=== PATIENT | female | born 1960 | race Caucasian/White ===

== ENCOUNTER 2016-03-31 12:14 | Day surgery (SDC) | payer OTHER ==
[~2016-03-31] VITALS: Ht 160 cm; Wt 78.0 kg
[~2016-03-31 12:14] MED LIST: ESOM40CA41 PO; Lactated Ringer's 1,000 ML IV ONE; OMEP20TA24 PO; OXYC10TA69 PO; QUE9 PO; RANI75TA21 PO; SERT100T PO
[2016-03-31] MEDS ORDERED: Propofol 10,000 mCg/mL 20 mL Inj ONE (12:15)
[2016-03-31 12:40] VITALS: BP 140/65; PULSE 63; RESP 12; O2SAT 100
[2016-03-31] MEDS ORDERED: BIMA2.5D5 OD (12:40)
[2016-03-31] MEDS ORDERED: GABA-502 PO (12:40)
[2016-03-31] MEDS ORDERED: Lactated Ringer's 1,000 ML IV SCH (13:39)
--- NOTE | 2016-03-31 13:39 | PCM.HPANE ---
Patient Data Surgeon Admitting Provider: Attending Provider:Eduar Menjivar MD Primary Care Physician:Christine Canales PA-C Other Provider:Dillon Gilliland Anesthesia Reason for Visit Diarrhea, Epigastic Pain Ht/WT & BMI Height (Feet): 5 Height (Inches): 3 Weight (Kilograms): 78 Body Mass Index 30.00 Allergies Coded Allergies: Sulfa (Sulfonamide Antibiotics) (Verified Allergy, Unknown, 03/31/16) Past Anesthesia History Anesthesia History: Denies:: Abnormal Airway, Anesthesia Reactions, Difficult Intubation, Fam Anesthesia Reaction, Fam Malignant Hypertherm, Malignant Hyperthermia Diabetes History Hx Diabetes?: No MRSA MRSA: No Medications Home Meds Incl Beta [place]: No Reported Medications Bimatoprost (Lumigan)45 Drop/2.5 Ml Wzfdsif62 Drop OD HS #1 BOTTLE 03/31/16 Gabapentin 300 Mg Cdlkejj203 Mg PO TID Ref 0 03/31/16 Sertraline HCl (Zoloft)100 Mg Glusez976 Mg PO DAILY 30 Days Ref 0 03/29/16 Ranitidine (Zantac OTC)75 Mg Cjhltx99 Mg PO DAILY #1 PKG Ref 0 03/29/16 Omeprazole Magnesium (Prilosec Otc)20 Mg Tablet.dr20 Mg PO DAILY #1 PKG Ref 0 03/29/16 Oxycodone ER (Oxycontin)10 Mg Tab.er.12h10 Mg PO BID 03/29/16 Cholestyramine (Cholestyramine Packet)4 Gm Packet4 Gm PO DAILY Ref 0 03/29/16 Discontinued Reported Medications Esomeprazole Magnesium (Nexium)40 Mg Capsule.dr40 Mg PO BID Ref 0 03/29/16 History HEENT History: Positive for:: Dysphagia Hearing Problem (SPOSED TO WEAR HEARING AID BUT DOESN'T) Denies:: Abnormal Airway Difficult Intubation Teeth Condition: Missing Teeth Hx of Heart Problems?: Yes Cardiovascular History: Positive for:: Hypertension Denies:: AICD Chest Pain Pacemaker Valvular Heart Disease Other Cardiac History: SAYS "HEART SKIPS A BEAT" HASN'T BEEN DIAGNOSED. Hx of Respiratory Problem?: No Neurological History: Positive for:: CVA (X3) Hx of GI Problems?: Yes Gastrointestinal History: Positive for:: Gall Bladder Disease ([place] 2002) Gastroesphageal Reflux Hiatal Hernia Denies:: Cirrhosis Diverticulitis Liver Disease Rectal Bleeding Female Hx: Denies:: Currently Musculoskeletal History: Denies:: Fibromyalgia Joint Replacement Psycho Social History: Positive for:: Anxiety Hx Depression Hx Surgeries?: Yes ([place], BACK SURG, KNEE SURG, C SECTION, HYSTERECTOMY, THROAT (SCAR TISSUE)) Hx Any Other Health Problems?: Yes Hx Diabetes: No Hx Alcohol Use: Yes (OCCASIONAL) Stop/Bang Treated for Sleep Apnea?: Yes Do You Have a CPAP Machine?: Yes (DOESN'T USE IT) S-Snoring: Do You Snore Loudly: Yes T-Tired: feel tired, fatigued: Yes O-Obsered: Observed not breath: Yes P-Blood Pressure: treated: Yes B- Body Mass Index > 35 kg/m2: Yes A- Age over 50: Yes N- Neck Large Circumference: Yes G- Gender Male: No ELENI Total Score: 7 ELENI Risk Assessment: High Risk, =/>3 Yes Risk Assessment Category Category 1A: Patient has history of documented sleep apnea, and HAS NOT received any narcotic, sedative or anesthesia administration during this stay. Category 1B: Patient has history of documented sleep apnea, and HAS received any narcotic , sedative or anesthesia administration during this stay Category 2: Patient has SUSPECTED Obstructive Sleep Apnea, and HAS received any narcotic , sedative or anesthesia administration during this stay. Category 3: Patient has SUSPECTED Obstructive Sleep Apnea and HAS NOT received narcotic, sedative or anesthesia administration during this stay. Category 4: Outpatient in Procedural Areas with known sleep apnea or who screen positive for High Risk via the STOP/BANG questionnaire. Exam Exam Vital Signs Vital Signs Date Time Temp Pulse Resp B/P Pulse Ox O2 Delivery O2 Flow Rate FiO2 03/31/16 12:40 36.8 63 12 140/65 100 Room Air General Appearance: Oriented X3 HEENT/AIRWAY: MP 2 Lungs: Normal Air Movement Heart: Regular Rate/Rhythm Plan Impression Patient chart reviewed, patient interviewed and anesthestic plan with risks, benefits, and alternatives discussed, and informed consent obtained. ASA Physical Status: ASA2 Mod Systemic Disease Anesthetic Plan: MAC Bene/Risks/Altern/Consents: Yes HP Complete Prior to Induction: Yes Grover Blas MD Mar 31, 2016 13:39
[2016-03-31] MEDS ORDERED: MetoCLOpramide 5 mg/mL 2 mL Inj IVPUSH PRN (13:40)
[2016-03-31] MEDS ORDERED: Ondansetron 2 mg/mL 2 mL Inj IVPUSH PRN (13:40)
[2016-03-31 14:12] VITALS: BP 123/69; PULSE 75; RESP 16; O2SAT 96
[2016-03-31 14:24] VITALS: BP 139/70; PULSE 65; RESP 16; O2SAT 100
[2016-03-31 14:26] VITALS: BP 134/66; PULSE 76; RESP 16; O2SAT 100
--- NOTE | 2016-03-31 14:28 | PCM.ANEP1 ---
Post Anesthesia Phase 1 PACU Phase 1 Assessment Vital Signs Vital Signs Date Time Temp Pulse Resp B/P Pulse Ox O2 Delivery O2 Flow Rate FiO2 03/31/16 14:26 76 16 134/66 100 Room Air 03/31/16 14:24 65 16 139/70 100 Room Air 03/31/16 14:12 75 16 123/69 96 Room Air 03/31/16 12:40 36.8 63 12 140/65 100 Room Air Anesthetic Administered: MAC Level of Alertness: Awake, talking Pain: No Nausea or Vomiting: No Oxygen Delivery: Room Air Lungs: Normal Air Movement Grover Blas MD Mar 31, 2016 14:28
--- NOTE | 2016-03-31 14:28 | PCM.ANEP2 ---
Post Anesthesia Evaluation ASA/CMS Post Anesthesia VS in Patient's Normal Range?: Yes Resp Stable; Airway Patent?: Yes CV Function & Hydration Stable: Yes Mental Status Recovered?: Yes Pain control Satisfactory?: Yes N/V Control Satisfactory?: Yes Grover Blas MD Mar 31, 2016 14:28
--- NOTE | 2016-03-31 15:03 | ENDO ---
[address] [address] ENDOSCOPY PROCEDURE PATIENT: PETRA ALSTON : 1960 MR#: [id number] ADMIT: 03/31/2016 JOB ID: [id number] TYPE OF OPERATION: Esophagogastroduodenoscopy with biopsy, colonoscopy with biopsy. PREOPERATIVE DIAGNOSIS(ES): Gastroesophageal reflux disease, abdominal pain, diarrhea. POSTOPERATIVE DIAGNOSIS(ES): 1. Mild nonerosive gastritis. biopsy. 2. Small internal hemorrhoids. ANESTHESIA: Monitored anesthesia care. COMPLICATIONS: None. BLOOD LOSS: Minimal DESCRIPTION OF PROCEDURE: After risks and benefits explained to the patient, informed consent was obtained. After anesthesia administered, upper endoscope was then inserted in the mouth, intubating the esophagus, stomach, second portion of duodenum. Mucosa carefully examined. After procedure was done, the scope withdrawn, procedure terminated. A colonoscope was the inserted from the rectum to the terminal ileum and mucosa carefully examined. Prep of the patient was fair. After procedure was done, the scope was withdrawn and procedure terminated. FINDINGS: Upon inspection of the esophagus, the esophagus was normal without masses, ulcers, or lesions. Z-line located at 35 cm from incisors. Upon entering the stomach, there was mild nonerosive gastritis seen. No masses or ulcers were seen. Retroflexion was normal. Duodenal bulb, first and second portion normal. Biopsies taken of duodenum, antrum biopsy, distal esophagus. Upon inspection of the anus, no masses, hemorrhoids, ulcers, or fissures were seen throughout the entire examination. There were no polyps, masses, or lesions. Biopsies taken of the terminal ileum and colon. Retroflexion showed small internal hemorrhoids. IMPRESSION: 1. Small internal hemorrhoids. 2. Mild nonerosive gastritis. RECOMMENDATION: Await pathology results. Follow up in GI clinic as needed.
--- NOTE | 2016-04-04 14:35 | PATH ---
SURGICAL PATHOLOGY Attending Physician:Eduar Menjivar MD CASE STATUS: Signed Out PATIENT NAME: PETRA ALSTON PID: [id number] : 1960 DATE COLLECTED:03/31/2016 00:00 SPECIMEN: 1: Duodenum, Biopsy 2: Stomach, Antrum, Biopsy 3: Gastric, Biopsy 4: Esophagus, Biopsy 5: Ileum, Biopsy 6: Colon, Biopsy CLINICAL HISTORY: 1).DUODENUM BIOPSY 2).ANTRUM BIOPSY 3).GASTRIC BODY BIOPSY 4).DISTAL ESOPHAGUS BIOPSY 5).TERMINAL ILEUM BIOPSY 6).RANDOM COLON BIOPSY FINAL DIAGNOSIS: 1.DUODENUM BIOPSY: DUODENAL MUCOSA WITH NO DIAGNOSTIC ALTERATIONS. Negative for inflammation, sprue, dysplasia, and malignancy. 2.ANTRUM BIOPSY:ANTRAL MUCOSA WITH NO DIAGNOSTIC ALTERATIONS. Negative for Helicobacter organisms. Negative for intestinal metaplasia. Negative for dysplasia and malignancy. 3.GASTRIC BODY BIOPSY: BODY-TYPE MUCOSA WITH NO DIAGNOSTIC ALTERATIONS. Negative for Helicobacter organisms. Negative for intestinal metaplasia. Negative for dysplasia and malignancy. 4.DISTAL ESOPHAGUS BIOPSY: SQUAMOUS MUCOSA WITH NO DIAGNOSTIC ALTERATIONS. Negative for intestinal/Preciado' s metaplasia. Negative for dysplasia and malignancy. 5.TERMINAL ILEUM BIOPSY: NORMAL TERMINAL ILEUM MUCOSA. No inflammation identified. Negative for dysplasia and malignancy. 6.RANDOM COLON BIOPSY: COLONIC MUCOSA WITH NO DIAGNOSTIC ALTERATIONS. Negative for inflammation, dysplasia and malignancy. ICD10 code R10.9 GROSS DESCRIPTION: Received are six formalin-filled containers, each labeled with the patient' s name. 1. Received in formalin, labeled with the patient' s name and "duodenum biopsy", is a dry formalin container housing two fragments of [place], soft tissue ranging in size from 0.2 x 0.1 x 0.1 cm to 0.2 x 0.2 x 0.2 cm. All fragments are totally submitted in cassette 1A. 2. Received in formalin, labeled with the patient' s name and "antrum biopsy", are two fragments of [place], soft tissue ranging in size from 0.1 x 0.1 x 0.1 cm to 0.3 x 0.2 x 0.2 cm. All fragments are totally submitted in cassette 2A. 3. Received in formalin, labeled with the patient' s name and "gastric body biopsy", is one fragment of [place], soft tissue measuring 0.3 x 0.2 x 0.2 cm. The fragment is totally submitted in cassette 3A. 4. Received in formalin, labeled with the patient' s name and "distal esophagus biopsy", is one fragment of [place], soft tissue measuring 0.3 x 0.2 x 0.1 cm. The fragment is totally submitted in cassette 4A. 5. Received in formalin, labeled with the patient' s name and "terminal ileum biopsy", is one fragment of [place], soft tissue measuring 0.1 x 0.1 x 0.1 cm. The fragment is totally submitted in cassette 5A. 6. Received in formalin, labeled with the patient' s name and "random colon biopsy", are multiple fragments of [place], soft tissue ranging in size from 0.1 x 0.1 x 0.1 cm to 0.2 x 0.2 x 0.1 cm. All fragments are totally submitted in cassette 6A. (RL:[id number]) MICRO DESCRIPTION: See diagnosis. ICD-9 CODES: CPT CODES: 1: 03963 2: 42502 3: 71538 4: 77832 5: 71499 6: 48727 Electronically Signed Out Chelly Marin MD [facility] [address], [place] [address] Technical component performed at [facility], [facility] [address], [place], [address]
== END 2016-03-31 23:59 | disposition home or self-care (01) ==
LOC: END 12:14
PROVIDERS: ATTEND Internal Medicine Gastroenterology
DX: R19.7 Diarrhea, unspecified (principal); K64.8 Other hemorrhoids; Z80.0 Family history of malignant neoplasm of digestive organs; K58.9 Irritable bowel syndrome, unspecified; K29.50 Unspecified chronic gastritis without bleeding; K21.9 Gastro-esophageal reflux disease without esophagitis; G47.33 Obstructive sleep apnea (adult) (pediatric); F32.9 Major depressive disorder, single episode, unspecified; I10 Essential (primary) hypertension; G43.909 Migraine, unspecified, not intractable, without status migrainosus; F43.10 Post-traumatic stress disorder, unspecified; Z86.73 Personal history of transient ischemic attack (TIA), and cerebral infarction without residual deficits; F10.99 Alcohol use, unspecified with unspecified alcohol-induced disorder
CPT/HCPCS: 43239; 45380; J7120